=== PATIENT | female | born 1995 | race Two or more races ===

== ENCOUNTER 2024-02-02 20:54 | Emergency (ER) | payer OTHER ==
[~2024-02-02] VITALS: Ht 165.1 cm; Wt 49.9 kg
[2024-02-03 00:12] LABS: HEMATOCRIT 35.7 % (36.0-45.00); HEMOGLOBIN 11.9 g/dL (12.0-15.00); MEAN CELL VOLUME 80.5 fL (80.00-100.00); MEAN CORPUSCULAR HEMOGLOBIN 26.8 pg (27.00-32.0); MEAN CORPUSCULAR HGB CONC 33.3 g/dl (32.0-36.0); PLATELET COUNT 269 K/uL (150-450); RED BLOOD COUNT 4.44 M/uL (4.00-6.00); RED CELL DISTRIBUTION WIDTH 13.5 % (11.5-14.5)
[2024-02-03 00:33] LABS: ALBUMIN 3.9 gm/dL (3.4-5.0); BILIRUBIN TOTAL 0.18 mg/dL (0.3-1.2); CREATININE SERUM 0.73 mg/dL (0.55-1.02); GFR 93.61; GLOBULINA 4.1 G/DL (2.4-3.5); POTASSIUM 3.69 mEq/L (3.5-5.1)
== END 2024-02-03 02:10 | disposition home or self-care (01) ==
LOC: ER 20:55
PROVIDERS: Preventive Medicine Public Health & General Preventive Medicine
DX: J00 Acute nasopharyngitis [common cold] (principal); Z20.822 Contact with and (suspected) exposure to COVID-19